=== PATIENT | female | born 1990 | race African-American/Black ===

== ENCOUNTER 2020-08-11 14:57 | Emergency (ER) | payer OTHER ==
[~2020-08-11] VITALS: Ht 134.6 cm; Wt 38.1 kg
[2020-08-11 14:58] VITALS: BP 125/90
[2020-08-11 16:09] LABS: Basophils # (auto) 0 10 ^3/uL (0-0.2); Basophils % (auto) 0.3 % (0.0-2.0); Eosinophils # (auto) 0.1 10 ^3/uL (0-0.8); Hematocrit 34.6 % (36.0-46.0); Hemoglobin 11.5 g/dL (12.2-16.2); Lymphocytes # (auto) 1.5 10 ^3/uL (0.4-5.4); Lymphocytes % (auto) 16.2 % (10.0-50.0); Mean Corpuscular Hemoglobin 32.8 pg (28.0-32.0); Mean Corpuscular Hgb Conc. 33.1 g/dL (32.0-36.0); Monocytes # (auto) 0.4 10 ^3/uL (0-1.3); Neutrophils # (auto) 7.5 10 ^3/uL (1.6-8.6); Neutrophils % (auto) 78.5 % (37.0-80.0); Platelet Count (auto) 362 10^3/uL (140-450); Red Cell Distribution Width 14.8 % (11.8-14.3); White Blood Cell 9.5 10^3/uL (4.4-10.8)
[2020-08-11 17:14] LABS: Urine Bacteria NONE SEEN /hpf (None Seen); Urine Blood Negative /uL (Negative); Urine Specific Gravity 1.008 (1.001-1.035); Urine WBC 13 /hpf (0 - 5)
== END 2020-08-11 19:07 | disposition home or self-care (01) ==
LOC: ER 14:57
DX: O23.42 Unspecified infection of urinary tract in pregnancy, second trimester (principal); Z3A.18 18 weeks gestation of pregnancy
CPT/HCPCS: 36415; 76805; 81001; 81025; 84702; 85025

== ENCOUNTER 2024-10-19 19:11 | Emergency (ER) | payer MEDICARE, MEDICAID ==
[~2024-10-19] VITALS: Ht 121.9 cm; Wt 59.1 kg
[2024-10-19 19:17] VITALS: BP 131/95; PULSE 75; RESP 16; TEMP 98.3; O2SAT 100
--- NOTE | 2024-10-19 19:35 | ED.PDOC ---
History of Present Illness HPI Comments This is a 34-year-old female who comes in with chief complaint of low back pain times approximately one day. The patient states that she was just released from a facility and a prescriptions were called in but she was unable to fill them because they were not ready at the pharmacy. The patient is complaining of nausea as well as vomiting but no diarrhea. The patient denies any dysuria. She states that the lower back pain as a 10/10. She does have a history of seizures and chronic back pain in the past. 911 was called and the patient was transported to our facility. Chief Complaint: Back Pain Time Seen by MD: 19:33 Primary Care Provider: JULIAN Reviewed Notes: Nurses Notes, Chief Operator Hydroformer Notes, Medications, Allergies (No allergies to medications) Allergies: Coded Allergies: NO KNOWN ALLERGIES (Unverified , 08/11/20) Information Source: Emergency Med Personnel Mode of Arrival: EMS Severity: Moderate Timing: Days Duration: Since onset Prehospital treatment: None Location: Lower back pain with nausea, vomiting Past Medical History PAST MEDICAL HISTORY: Asthma, CKF, Depression, Seizures Past Medical History (Other): Chronic back pain, bone disorder Surgical History: Surgical History (Other): Extremity surgeries ORGANISATIONAL PSYCHOLOGIST History: No Pertinent ORGANISATIONAL PSYCHOLOGIST History Family History Family History: Reviewed,noncontributory to illness Social History Smoker: Cigarettes Alcohol: Occasionally Drugs: Marijuana Lives In: Home Constitutional: denies: chills, diaphoresis, fatigue, fever, malaise, sweats, weakness, others EENTM: denies: blurred vision, double vision, ear bleeding, ear discharge, ear drainage, ear pain, ear ringing, eye pain, eye redness, hearing loss, mouth pain, mouth swelling, nasal discharge, nose bleeding, nose congestion, nose pain, photophobia, tearing, throat pain, throat swelling, voice changes, others Respiratory: denies: cough, hemoptysis, orthopnea, SOB at rest, shortness of breath, SOB with excertion, stridor, wheezing, others Cardiovascular: denies: chest pain, dizzy spells, diaphoresis, Dyspnea on exertion, edema, irregular heart beat, left arm pain, lightheadedness, palpitations, PND, syncope, others Gastrointestinal: reports: nausea, vomiting; denies: abdomen distended, abdominal pain, blood streaked bowels, constipated, diarrhea, dysphagia, difficulty swallowing, hematemesis, melena, poor appetite, poor fluid intake, rectal bleeding, rectal pain, others Genitourinary: denies: abnormal vagina bleeding, burning, dyspareunia, dysuria, flank pain, frequency, hematuria, incontinence, pain, , vagina discharge, urgency, others Neurological: denies: dizziness, fainting, headache, left sided numbness, left sided weakness, numbness, paresthesia, pre-existing deficit, right sided numbness, right sided weakness, seizure, speech problems, tingling, tremors, weakness, others Musculoskeletal: reports: back pain; denies: gout, joint pain, joint swelling, muscle pain, muscle stiffness, neck pain, others Integumetry: denies: bruises, change in color, change in hair/nails, dryness, laceration, lesions, lumps, rash, wounds, others Allergic/Immunocompromised: denies: Difficulty Healing, Frequent Infections, Hives, Itching, others Hematologic/Lymphatic: denies: anemia, blood clots, easy bleeding, easy bruising, swollen glands, others Endocrine: denies: excessive hunger, excessive sweating, excessive thirst, excessive urination, flushing, intolerance to cold, intolerance to heat, unexplained weight gain, unexplained weight loss, others Psychiatric: denies: anxiety, bipolar disorder, depression, hopeless, panic disorder, schizophrenia, sleepless, suicidal, others Physical Exam General Appearance: Moderate Distress HEENT: Normal ENT Inspection, Pharynx Normal, TMs Normal Neck: Full Range of Motion, Non-Tender, Normal, Normal Inspection Respiratory: Chest Non-Tender, Lungs Clear, No Accessory Muscle Use, No Respiratory Distress, Normal Breath Sounds Cardiovascular: No Edema, No JVD, No Murmur, No Gallop, Normal Peripheral Pulses, Regular Rate/Rhythm Breast Exam: Deferred Gastrointestinal: No Organomegaly, Non Tender, No Pulsatile Mass, Normal Bowel Sounds, Soft Genitalia: Deferred Pelvic: Deferred Rectal: Deferred Extremities: No calf tenderness, Normal capillary refill, No pedal edema Musculoskeletal : Apperance: Normal Neurologic: Alert, Motor Weakness, Normal Affect, Normal Mood, Other (The patient was paraplegic) Cerebellar Function: Unable to Test Reflexes: Normal Skin: Dry, Normal Color, Warm Lymphatic: No Adenopathy Was a procedure done? Was a procedure done?: No Differential Dx Considerations may include: Chronic back pain, electrolyte imbalance, UTI, generalized weakness X-Ray, Labs, Meds, VS Vital Signs Date Time Temp Pulse Resp B/P (MAP) Pulse Ox O2 Delivery O2 Flow Rate FiO2 10/19/24 19:17 98.3 75 16 131/95 (107) 100 98.3 IV Hep-Lock was established. The patient was given morphine for the pain The patient was given Zofran 4 mg IV push for the nausea At this time, the patient will be discharged. The patient was in the ambulance base smoking weed so the patient is being discharged The patient will return to the emergency department's condition worsens. She is refusing all blood work to be done at this time Time of 1ST Reevaluation: 20:11 Reevaluation 1ST: Improved Patient Education/Counseling: Diagnosis, Treatment, Prognosis, Need For Follow Up (She has) Family Education/Counseling: No Family Present Departure 1 Departure Time of Disposition: 20:46 Impression: Primary Impression: Chronic back pain Qualified Codes: M54.50 - Low back pain, unspecified; G89.29 - Other chronic pain Disposition: 01 HOME / SELF CARE / HOMELESS Condition: Fair Discharged With: Self Critical Care Note Critical Care Time?: No Stability Stability form required: No Heart Score Heart Score: Heart Score Response (Comments) Value History N/A 0 EKG N/A 0 Age N/A 0 Risk Factors N/A 0 Troponin N/A (People are talking) 0 Total 0 BHARATI CANALES MD Oct 19, 2024 19:35
[2024-10-19] MEDS: MORPHINE SULFATE 4 MG/ML SYR/VIAL IV ONE (22:05)
[2024-10-19] MEDS: SODIUM CHLORIDE 0.9% 500 ML IV ONE (22:05)
[2024-10-19] MEDS: ONDANSETRON HCL 4 MG/2 ML VIAL IV ONE (22:06)
== END 2024-10-20 00:25 | disposition home or self-care (01) ==
LOC: ER 19:11 → EDBD 19:11 → ER 10-20 00:25
DX: G89.29 Other chronic pain (principal); M54.50 Low back pain, unspecified; R11.2 Nausea with vomiting, unspecified; F17.210 Nicotine dependence, cigarettes, uncomplicated; F12.90 Cannabis use, unspecified, uncomplicated; J45.909 Unspecified asthma, uncomplicated; N18.9 Chronic kidney disease, unspecified; F32.A Depression, unspecified; Z88.6 Allergy status to analgesic agent; Z98.890 Other specified postprocedural states

== ENCOUNTER 2024-10-19 19:20 | Emergency (ER) | payer OTHER | END 2024-10-19 19:21 | disposition left against medical advice (07) | LOC: ER 19:20 → EDBD 19:20 → EDUNIT# 19:20 → ER 19:21 | DX: M54.9 Dorsalgia, unspecified (principal); Z53.21 Procedure and treatment not carried out due to patient leaving prior to being seen by health care provider ==